=== PATIENT | female | born 1955 | race African-American/Black ===

== ENCOUNTER 2021-11-13 16:02 | Inpatient (IN) ==
[2021-11-13 17:57] LABS: Basophils % 0.5 % (0.0-0.8); Eosinophils # 0.2 10*3/uL (0.0-0.87); Eosinophils % 2.1 % (0.00-10.9); Hematocrit 41.3 VOL% (35.7-47.0); Hemoglobin 13.1 GM/DL (12.0-16.0); Immature Granulocytes % 0.4 %; Immature Granulocytes Absolute 0.03 #; Lymphocytes # 4.1 10*3/uL (1.4-4.0); Mean Corpuscular HGB Conc 31.7 GM/DL (32-36); Mean Corpuscular Volume 94.7 FL (87-102); Mean Platelet Volume 9.7 FL (9.6-12.0); Monocytes # 0.5 10*3/uL (0.11-0.8); Monocytes % 6.7 % (1.7-12.7); Neutrophils % 35.3 % (38.7-73.9); Platelet Count 259 T/CUMM (130-400); Red Blood Count 4.36 MC/CUMM (3.8-5.5); Red Cell Distribution Width 13.6 % (9.3-17.3); White Blood Count 7.5 T/CUMM (4-12)
[2021-11-13 18:18] LABS: Alanine Aminotransferase 41 U/L (13-56); Albumin 3.6 G/DL (3.4-5.0); Alkaline Phosphatase 73 U/L (45-117); Aspartate Amino Transferase 17 U/L (0-37); Bilirubin,Total < 0.39 MG/DL (0.20-1.00); Blood Urea Nitrogen 14 MG/DL (7-18); Calcium 9.2 MG/DL (8.5-10.1); Carbon Dioxide 32 MMOL/L (21-32); Chloride 104 MMOL/L (98-107); Glucose 93 MG/DL (74-106); Osmolality,Calculated 277.5 MOS/KG (273-304); Potassium 3.9 MMOL/L (3.5-5.1); Sodium 139 MMOL/L (136-145); Total Protein 7.3 G/DL (6.4-8.2)
[2021-11-13 18:25] LABS: Eosinophils 3 % (0-10); Lymphocytes 60 % (20-55); Total Cells Counted 100
[2021-11-13 18:27] LABS: Platelet Estimate Adequate
[2021-11-13 20:48] LABS: INR 1.1; PT Patient Result 11.9 SECS (10.5-12.0)
[2021-11-13] MEDS ORDERED: MORPHINE 2 MG/1 ML SYRINGE IV PRN (20:53)
[2021-11-13] MEDS ORDERED: ACETAMINOPHEN 325 MG TABLET PO PRN (20:53)
[2021-11-13] MEDS ORDERED: ONDANSETRON 4 MG/2 ML VIAL IV PRN (20:53)
[2021-11-13] MEDS ORDERED: APIXABAN 5 MG TABLET PO SCH (21:00)
[2021-11-13] MEDS ORDERED: WARFARIN 10 MG TABLET PO ONE (22:00)
[2021-11-13] MEDS: carvediloL 25 MG TABLET PO SCH (22:50)
[2021-11-13] MEDS: QUEtiapine 25 MG TABLET PO SCH (22:50)
[2021-11-13] MEDS: ENOXAPARIN 80 MG/0.8 ML SYRINGE SUBCUT SCH (22:55)
[2021-11-14] MEDS: PHENYTOIN ER 100 MG CAPSULE PO SCH ×4 (05:26→20:52)
[2021-11-14 07:19] LABS: Basophils # 0.1 10*3/uL (0.0-0.2); Eosinophils # 0.2 10*3/uL (0.0-0.87); Eosinophils % 2.5 % (0.00-10.9); Hematocrit 39.8 VOL% (35.7-47.0); Hemoglobin 12.8 GM/DL (12.0-16.0); Immature Granulocytes % 0.2 %; Immature Granulocytes Absolute 0.01 #; Lymphocytes # 3.6 10*3/uL (1.4-4.0); Lymphocytes % 58.6 % (21.3-54.2); Mean Corpuscular HGB Conc 32.2 GM/DL (32-36); Mean Corpuscular Volume 95.2 FL (87-102); Mean Platelet Volume 9.8 FL (9.6-12.0); Monocytes # 0.4 10*3/uL (0.11-0.8); Monocytes % 6.9 % (1.7-12.7); Neutrophils % 30.8 % (38.7-73.9); Platelet Count 251 T/CUMM (130-400); Red Blood Count 4.18 MC/CUMM (3.8-5.5); Red Cell Distribution Width 13.8 % (9.3-17.3); White Blood Count 6.1 T/CUMM (4-12)
[2021-11-14 07:28] LABS: INR 1.1; PT Patient Result 12.3 SECS (10.5-12.0)
[2021-11-14 07:42] LABS: Eosinophils 7 % (0-10); Lymphocytes 70 % (20-55); Platelet Estimate Adequate; Total Cells Counted 100
[2021-11-14 07:43] LABS: Atypical Lymphocytes Few
[2021-11-14 07:45] LABS: Alanine Aminotransferase 41 U/L (13-56); Albumin 3.3 G/DL (3.4-5.0); Alkaline Phosphatase 60 U/L (45-117); Aspartate Amino Transferase 19 U/L (0-37); Bilirubin,Total < 0.39 MG/DL (0.20-1.00); Blood Urea Nitrogen 11 MG/DL (7-18); Carbon Dioxide 30 MMOL/L (21-32); Chloride 106 MMOL/L (98-107); Glucose 84 MG/DL (74-106); Osmolality,Calculated 276.4 MOS/KG (273-304); Potassium 3.7 MMOL/L (3.5-5.1); Sodium 140 MMOL/L (136-145); Total Protein 7.1 G/DL (6.4-8.2)
[2021-11-14] MEDS: hydroCHLOROthiazide 25 MG TABLET PO SCH (08:42)
[2021-11-14] MEDS: carvediloL 25 MG TABLET PO SCH ×2 (08:43→20:52)
[2021-11-14] MEDS: PANTOPRAZOLE 40 MG TABLET PO SCH (08:43)
[2021-11-14] MEDS: ENOXAPARIN 80 MG/0.8 ML SYRINGE SUBCUT SCH ×2 (09:21→21:29)
[2021-11-14] MEDS: WARFARIN 5 MG TABLET PO SCH (17:11)
[2021-11-14] MEDS: QUEtiapine 25 MG TABLET PO SCH (20:52)
[2021-11-14] MEDS: POLYETHYLENE GLYCOL POWDER 17 GM PACK PO SCH (21:07)
[2021-11-15 06:57] LABS: Basophils # 0.1 10*3/uL (0.0-0.2); Basophils % 1.5 % (0.0-0.8); Eosinophils # 0.2 10*3/uL (0.0-0.87); Eosinophils % 3.3 % (0.00-10.9); Hematocrit 46.1 VOL% (35.7-47.0); Hemoglobin 14.6 GM/DL (12.0-16.0); Immature Granulocytes % 0.2 %; Immature Granulocytes Absolute 0.01 #; Lymphocytes # 2.8 10*3/uL (1.4-4.0); Lymphocytes % 57.7 % (21.3-54.2); Mean Corpuscular HGB Conc 31.7 GM/DL (32-36); Mean Corpuscular Volume 94.7 FL (87-102); Mean Platelet Volume 9.9 FL (9.6-12.0); Monocytes # 0.3 10*3/uL (0.11-0.8); Monocytes % 6.5 % (1.7-12.7); Neutrophils % 30.8 % (38.7-73.9); Platelet Count 282 T/CUMM (130-400); Red Blood Count 4.87 MC/CUMM (3.8-5.5); Red Cell Distribution Width 13.5 % (9.3-17.3); White Blood Count 4.8 T/CUMM (4-12)
[2021-11-15 07:07] LABS: INR 1.4; PT Patient Result 15.1 SECS (10.5-12.0)
[2021-11-15 07:18] LABS: Calcium 9.8 MG/DL (8.5-10.1); Osmolality,Calculated 280.3 MOS/KG (273-304); Potassium 4.4 MMOL/L (3.5-5.1)
[2021-11-15 07:20] LABS: Risk Ratio 1.96; VLDL Cholesterol 20.8 MG/DL
[2021-11-15 08:02] LABS: Lymphocytes 52 % (20-55); Platelet Estimate Normal; Total Cells Counted 100
[2021-11-15] MEDS: PANTOPRAZOLE 40 MG TABLET PO SCH (08:23)
[2021-11-15] MEDS: hydroCHLOROthiazide 25 MG TABLET PO SCH (08:23)
[2021-11-15] MEDS: PHENYTOIN ER 100 MG CAPSULE PO SCH ×3 (08:23→21:18)
[2021-11-15] MEDS: carvediloL 25 MG TABLET PO SCH ×2 (08:23→21:17)
[2021-11-15] MEDS: POLYETHYLENE GLYCOL POWDER 17 GM PACK PO SCH ×2 (08:23→21:17)
[2021-11-15] MEDS: ASPIRIN CHEW 81 MG TABLET PO SCH (09:12)
[2021-11-15] MEDS: ENOXAPARIN 80 MG/0.8 ML SYRINGE SUBCUT SCH ×2 (09:12→21:18)
[2021-11-15] MEDS: WARFARIN 5 MG TABLET PO SCH (17:04)
[2021-11-15] MEDS: QUEtiapine 25 MG TABLET PO SCH (21:18)
[2021-11-16 05:15] LABS: INR 1.7; PT Patient Result 18.1 SECS (10.5-12.0)
[2021-11-16] MEDS: hydroCHLOROthiazide 25 MG TABLET PO SCH (09:09)
[2021-11-16] MEDS: ASPIRIN CHEW 81 MG TABLET PO SCH (09:09)
[2021-11-16] MEDS: ENOXAPARIN 80 MG/0.8 ML SYRINGE SUBCUT SCH ×2 (09:09→21:31)
[2021-11-16] MEDS: carvediloL 25 MG TABLET PO SCH ×2 (09:09→21:32)
[2021-11-16] MEDS: PHENYTOIN ER 100 MG CAPSULE PO SCH ×3 (09:09→21:31)
[2021-11-16] MEDS: PANTOPRAZOLE 40 MG TABLET PO SCH (09:09)
[2021-11-16] MEDS: POLYETHYLENE GLYCOL POWDER 17 GM PACK PO SCH ×2 (09:11→21:32)
[2021-11-16] MEDS: WARFARIN 5 MG TABLET PO SCH (17:16)
[2021-11-16] MEDS: QUEtiapine 25 MG TABLET PO SCH (21:32)
[2021-11-16] MEDS: ROSUVASTATIN 20 MG TABLET PO SCH (21:32)
[2021-11-17 04:53] LABS: Basophils # 0.1 10*3/uL (0.0-0.2); Basophils % 1.3 % (0.0-0.8); Eosinophils # 0.1 10*3/uL (0.0-0.87); Eosinophils % 2.3 % (0.00-10.9); Hematocrit 42.2 VOL% (35.7-47.0); Hemoglobin 13.5 GM/DL (12.0-16.0); Immature Granulocytes % 0.2 %; Immature Granulocytes Absolute 0.01 #; Lymphocytes # 3.5 10*3/uL (1.4-4.0); Lymphocytes % 62.7 % (21.3-54.2); Mean Corpuscular Volume 94.6 FL (87-102); Mean Platelet Volume 9.9 FL (9.6-12.0); Monocytes # 0.3 10*3/uL (0.11-0.8); Monocytes % 6.1 % (1.7-12.7); Neutrophils % 27.4 % (38.7-73.9); Platelet Count 257 T/CUMM (130-400); Red Blood Count 4.46 MC/CUMM (3.8-5.5); Red Cell Distribution Width 13.6 % (9.3-17.3); White Blood Count 5.6 T/CUMM (4-12)
[2021-11-17 05:01] LABS: INR 1.8; PT Patient Result 19.4 SECS (10.5-12.0)
[2021-11-17 05:17] LABS: Calcium 9.4 MG/DL (8.5-10.1); Osmolality,Calculated 277.5 MOS/KG (273-304); Potassium 3.7 MMOL/L (3.5-5.1)
[2021-11-17 05:18] LABS: Atypical Lymphocytes Few; Eosinophils 5 % (0-10); Lymphocytes 72 % (20-55); Microcytosis 1+; Total Cells Counted 100
[2021-11-17] MEDS: hydroCHLOROthiazide 25 MG TABLET PO SCH (08:47)
[2021-11-17] MEDS: carvediloL 25 MG TABLET PO SCH ×2 (08:47→21:17)
[2021-11-17] MEDS: PANTOPRAZOLE 40 MG TABLET PO SCH (08:47)
[2021-11-17] MEDS: PHENYTOIN ER 100 MG CAPSULE PO SCH ×3 (08:48→21:17)
[2021-11-17] MEDS: ASPIRIN CHEW 81 MG TABLET PO SCH (08:48)
[2021-11-17] MEDS: POLYETHYLENE GLYCOL POWDER 17 GM PACK PO SCH ×2 (08:48→21:18)
[2021-11-17] MEDS: ENOXAPARIN 80 MG/0.8 ML SYRINGE SUBCUT SCH ×2 (12:13→21:23)
[2021-11-17] MEDS: WARFARIN 5 MG TABLET PO SCH (18:05)
[2021-11-17] MEDS: QUEtiapine 25 MG TABLET PO SCH (21:17)
[2021-11-17] MEDS: ROSUVASTATIN 20 MG TABLET PO SCH (21:23)
[2021-11-18 04:52] LABS: PT Patient Result 20.6 SECS (10.5-12.0)
[2021-11-18] MEDS: ASPIRIN CHEW 81 MG TABLET PO SCH (09:00)
[2021-11-18] MEDS: hydroCHLOROthiazide 25 MG TABLET PO SCH (09:00)
[2021-11-18] MEDS: PANTOPRAZOLE 40 MG TABLET PO SCH (09:01)
[2021-11-18] MEDS: carvediloL 25 MG TABLET PO SCH (09:01)
[2021-11-18] MEDS: POLYETHYLENE GLYCOL POWDER 17 GM PACK PO SCH (09:01)
[2021-11-18] MEDS: PHENYTOIN ER 100 MG CAPSULE PO SCH ×2 (09:01→15:24)
[2021-11-18 16:48] VITALS: BP 132/80
== END 2021-11-18 16:50 | disposition home or self-care (01) | DRG 176 ==
LOC: N.EDINP 16:02 → N.ED 16:02 → SUATTDRO 20:53 → N.TELES 22:22 → SUATTDRO 11-14 09:32
PROVIDERS: ADMIT Hospitalist; ATTEND Emergency Medicine